=== PATIENT | female | born 1990 | race Caucasian/White ===

== ENCOUNTER 2018-12-21 05:27 | Day surgery (SDC) | payer MEDICAID ==
[2018-12-19 15:09] LABS: BASOPHILS 0.1 % (0-2); EOSINOPHILS 0.7 % (0-7); HEMATOCRIT 39.4 % (36.0-48.0); HEMOGLOBIN 13.5 g/dL (12-16); IMMATURE GRANULOCYTES 0.1 % (0-5); LYMPHOCYTES 31.3 % (15-50); MCHC 34.3 g/dL (31.0-37.0); MCV 87.6 fL (80.0-100.0); MEAN PLATELET VOLUME 9.5 fL (7.4-10.4); MONOCYTES 8.4 % (2-11); NEUTROPHILS 59.4 % (40-80); PLATELET COUNT 276 10x3/uL (130-400); WBC 8.9 10x3/uL (4.8-10.8)
[~2018-12-21] VITALS: Ht 152.4 cm; Wt 68.9 kg
[~2018-12-21 05:27] MED LIST: MECLIZINE HCL25 MG PO; MELATONIN 3 MG1 TAB PO; THEREMS-M1 TAB PO
[2018-12-21 06:25] VITALS: BP 136/80; Ht 152.4 cm; Wt 68.9 kg
[2018-12-21 06:35] LABS: HCG URINE NEGATIVE (NEGATIVE)
--- NOTE | 2018-12-21 08:55 | NUR ---
REC'D FROM RR. FAMILY AT BEDSIDE. BANDAIDS CDI TO ABDOMEN. C/O PAIN 01/28. ICE WATER BROUGHT TO PATIENT.
--- NOTE | 2018-12-21 09:15 | NUR ---
NORCO 5MG PO ADMINISTERED X1 FOR C/O PAIN.
--- NOTE | 2018-12-21 09:20 | NUR ---
WRITTEN AND VERBAL DC INST. GIVEN TO PT ALONG WITH RX. VERBALIZED UNDERSTANDING. VOIDED WITHOUT DIFFICULTY. FAMILY AT BEDSIDE.
--- NOTE | 2018-12-21 09:25 | NUR ---
TOLERATING ICE WATER. WAITING ON FL TRAY. FAMILY AT BEDSIDE.
--- NOTE | 2018-12-21 09:35 | NUR ---
LUIS MENDIOLA SERVED. FAMILY AT BEDSIDE.
--- NOTE | 2018-12-21 09:55 | NUR ---
UP TO BATHROOM. TOLERATED FL TRAY. RATES PAIN 4/10. FAMILY AT BEDSIDE.
--- NOTE | 2018-12-21 10:30 | NUR ---
DC'D HOME WITH FAMILY VIA PRIVATE VEHICLE. TAKEN TO VEHICLE VIA WC. STABLE AT TIME OF DC.
--- NOTE | 2019-01-01 13:55 | OP ---
PATIENT NAME: ROBBIN KUO MEDICAL RECORD: [id number] :89 LOCATION:D.OPS ADMISSION DATE: SURGEON: WOODY DANG MD DATE OF OPERATION: 12/21/2018 PREOPERATIVE DIAGNOSIS: Pelvic pain. POSTOPERATIVE DIAGNOSES: 1. Pelvic pain. 2. Findings consistent with endometriosis. 3. Adhesive disease from previous section. PROCEDURE: Operative laparoscopy and lysis of adhesions. SURGEON: Woody Dang MD ANESTHESIA: General endotracheal. INTRAVENOUS FLUIDS: Per anesthesia record. SPECIMENS: None. FINDINGS: 1. Uterus with a boggy texture consistent with adenomyosis. 2. Scant omental adhesions from previous section to previous Pfannenstiel. 3. Adhesions involving the lower uterine segment of cervix and bladder. 4. Normal tubes and ovaries bilaterally. PROCEDURE IN DETAIL: The patient was taken to the operating room where general anesthesia was achieved without difficulty. The patient was prepped and draped in normal sterile fashion in the dorsal lithotomy position in the [facility]. Following prep and drape, a sponge stick was placed in the vagina for uterine elevation and the patient was straight-catheterized approximately 100 cc of clear yellow urine. At this point, a 5-mm incision was made infraumbilically using the 11-blade and a 5-mm bladeless trocar was used to enter the intraperitoneal space under direct visualization of the laparoscope. The introducer was removed and intraperitoneal placement was confirmed using the laparoscope. The patient was then insufflated and opening pressure was found to be less than 8 mmHg. The patient was then insufflated. Survey of the abdomen and pelvis was performed. A second 5-mm skin incision was made in the midline, approximately 4-5 cm above the pubic symphysis. A skin incision was made and then a 5-mm bladeless trocar was then used to create a second port site under direct visualization of the laparoscope. The bipolar cautery was then used to remove several omental adhesions on the anterior abdominal wall and then attention was turned to the intrapelvic organs. No significant ovarian or tubal pathology was identified. The uterus was very soft and boggy in appearance consistent with adenomyosis. There were multiple areas of peritoneal powder-burn lesions consistent with endometriosis. Dense scarring was noted within the lower uterine segment and bladder. Following removal of the adhesions and survey of the abdomen and pelvis, the patient was desufflated. Laparoscope was removed. The trocars were removed and the skin incisions repaired with 3-0 Vicryl in an interrupted fashion. Sponge stick was removed from the vagina. The patient tolerated the procedure well, was transported to postanesthesia recovery stable without incident. OPERATIVE REPORT [id number] ROBBIN KUO TRANSINT:[id number] Voice Confirmation ID: [id number] DOCUMENT ID: [id number] WOODY DANG MD at 1355 CC: [id number] DICTATION DATE: 12/28/18 1315 SCIENCE TECHNICIAN: 12/28/18 1414 [facility] 12/21/[id number] [place] [address]
== END 2018-12-21 10:30 | disposition home or self-care (01) ==
LOC: D.OPS 05:27 → D.PAN 07:30 → D.OPS 07:30
PROVIDERS: ATTEND Obstetrics & Gynecology
DX: G89.29 Other chronic pain (principal); R10.2 Pelvic and perineal pain; N94.10 Unspecified dyspareunia; N73.6 Female pelvic peritoneal adhesions (postinfective); L40.9 Psoriasis, unspecified; F41.9 Anxiety disorder, unspecified; Z88.1 Allergy status to other antibiotic agents; Z79.899 Other long term (current) drug therapy; Z01.812 Encounter for preprocedural laboratory examination

== ENCOUNTER → 2020-11-17 08:25 | Outpatient (CLI) | payer MEDICAID ==
[2018-12-21 06:25] VITALS: BMI 29.7
[2020-11-17 09:55] LABS: BILIRUBIN NEGATIVE (NEGATIVE); KETONE NEGATIVE (NEGATIVE); NITRITE NEGATIVE (NEGATIVE); UROBILINOGEN NORMAL mg/dL (< 2)
[2020-11-17 09:56] LABS: BACTERIA FEW HPF (NONE SEEN); SQUAMOUS EPITHELIAL 0-5 HPF (0-4); WHITE CELLS - URINE 0-5 HPF (0-4)
== END | disposition home or self-care (01) ==
LOC: D.LDO 08:25
PROVIDERS: ATTEND Obstetrics & Gynecology
DX: O35.9XX0 Maternal care for (suspected) fetal abnormality and damage, unspecified, not applicable or unspecified (principal)

== ENCOUNTER 2020-12-01 16:56 | Outpatient (CLI) | payer MEDICAID ==
[2018-12-21 06:25] VITALS: BMI 29.7
[2020-12-01 17:23] LABS: BASOPHILS 0.1 % (0-2); EOSINOPHILS 0.1 % (0-7); HEMATOCRIT 38.2 % (36.0-48.0); HEMOGLOBIN 12.3 g/dL (12-16); IMMATURE GRANULOCYTES 0.2 % (0-5); LYMPHOCYTE ABS# 2.15 10x3/uL (1.18-3.74); LYMPHOCYTES 15.8 % (15-50); MCH 30.3 pg (26.0-34.0); MCHC 32.2 g/dL (31.0-37.0); MCV 94.1 fL (80.0-100.0); MEAN PLATELET VOLUME 10.5 fL (7.4-10.4); NEUTROPHIL ABS# 10.56 10x3/uL (1.56-6.13); NEUTROPHILS 77.8 % (40-80); PLATELET COUNT 257 10x3/uL (130-400); RBC 4.06 10x6/uL (4.00-5.40); RDW 14.6 % (11.5-14.5); WBC 13.6 10x3/uL (4.8-10.8)
[2020-12-01 17:37] LABS: CALC OSMOLALITY 271 mosm/kg (275-300); CALCIUM 8.6 mg/dL (8.5-10.1); CARBON DIOXIDE 24.8 mmol/L (21.0-32.0); CHLORIDE - SERUM 104 mmol/L (98-107); CREATININE - SERUM 0.7 mg/dL (0.6-1.3); GLUCOSE 91 mg/dL (74-106); POTASSIUM - SERUM 3.9 mmol/L (3.5-5.1); SODIUM 137 mmol/L (136-145); UREA NITROGEN 8 mg/dL (7-18); eGFR NON AFRICAN AMERICAN > 90 mL/min (90-120)
[2020-12-01 17:43] LABS: ALBUMIN 2.2 g/dL (3.4-5.0); ALKALINE PHOSPHATASE 97 U/L (30-120); ALT (SGPT) 21 U/L (10-68); BILIRUBIN - INDIRECT 0.17 mg/dL (0.00-1.00); BILIRUBIN - TOTAL 0.18 mg/dL (0.2-1.3); URIC ACID 5.4 mg/dL (2.6-7.2)
[2020-12-01 17:49] LABS: BILIRUBIN - DIRECT 0.01 mg/dL (0.00-0.30)
== END 2020-12-01 18:07 | disposition home or self-care (01) ==
LOC: D.LDO 16:56
PROVIDERS: ATTEND Obstetrics & Gynecology
DX: O24.419 Gestational diabetes mellitus in pregnancy, unspecified control (principal)

== ENCOUNTER 2020-12-04 12:06 | Outpatient (CLI) | payer MEDICAID ==
[2018-12-21 06:25] VITALS: BMI 29.7
[2020-12-04 13:39] LABS: BILIRUBIN NEGATIVE (NEGATIVE); KETONE NEGATIVE (NEGATIVE); NITRITE NEGATIVE (NEGATIVE); UROBILINOGEN NORMAL mg/dL (< 2)
[2020-12-04 13:40] LABS: BACTERIA FEW HPF (NONE SEEN); SQUAMOUS EPITHELIAL 0-5 HPF (0-4)
[2020-12-04] MEDS ORDERED: PRENAVITE1 TAB PO (16:47)
[2020-12-04] MEDS ORDERED: GLYBURIDE2.5 MG PO (16:47)
[2020-12-04] MEDS ORDERED: ATARAX 25 MG TA25 MG PO (16:48)
[2020-12-04] MEDS ORDERED: CYCLOBENZAPRINE10 MG PO (16:49)
[2020-12-04] MEDS ORDERED: COLACE100 MG PO (16:50)
== END 2020-12-05 09:07 | disposition home or self-care (01) ==
LOC: D.LDO 12:06 → D.LD 21:16 → D.LDO 12-05 09:07
PROVIDERS: ATTEND Obstetrics & Gynecology
DX: O24.419 Gestational diabetes mellitus in pregnancy, unspecified control (principal)

== ENCOUNTER 2020-12-09 13:35 | Outpatient (CLI) | payer MEDICAID ==
[2018-12-21 06:25] VITALS: BMI 29.7
[~2020-12-09 13:35] MED LIST changes: +ATARAX 25 MG TA25 MG PO; +COLACE100 MG PO; +CYCLOBENZAPRINE10 MG PO; +GLYBURIDE2.5 MG PO; +PRENAVITE1 TAB PO
== END 2020-12-09 13:45 | disposition home or self-care (01) ==
LOC: D.LDO 13:35
PROVIDERS: ATTEND Obstetrics & Gynecology
DX: O24.419 Gestational diabetes mellitus in pregnancy, unspecified control (principal)

== ENCOUNTER 2020-12-14 16:10 | Outpatient (CLI) | payer MEDICAID ==
[2018-12-21 06:25] VITALS: BMI 29.7
== END 2020-12-14 17:16 | disposition home or self-care (01) ==
LOC: D.LDO 16:10
PROVIDERS: ATTEND Obstetrics & Gynecology
DX: O24.419 Gestational diabetes mellitus in pregnancy, unspecified control (principal); O16.9 Unspecified maternal hypertension, unspecified trimester

== ENCOUNTER 2020-12-17 14:00 | Outpatient (CLI) | payer MEDICAID ==
[2018-12-21 06:25] VITALS: BMI 29.7
== END 2020-12-17 16:00 | disposition home or self-care (01) ==
LOC: D.LDO 14:00
PROVIDERS: ATTEND Obstetrics & Gynecology
DX: O24.419 Gestational diabetes mellitus in pregnancy, unspecified control (principal)

== ENCOUNTER → 2020-12-22 14:39 | Outpatient (CLI) | payer MEDICAID ==
[2018-12-21 06:25] VITALS: BMI 29.7
== END | disposition home or self-care (01) ==
LOC: D.LDO 14:39
PROVIDERS: ATTEND Obstetrics & Gynecology
DX: O24.419 Gestational diabetes mellitus in pregnancy, unspecified control (principal)

== ENCOUNTER 2020-12-25 10:36 | Outpatient (CLI) | payer MEDICAID ==
[2018-12-21 06:25] VITALS: BMI 29.7
[2020-12-25 11:40] LABS: BASOPHILS 0.1 % (0-2); EOSINOPHILS 0.1 % (0-7); HEMATOCRIT 39.3 % (36.0-48.0); HEMOGLOBIN 12.9 g/dL (12-16); IMMATURE GRANULOCYTES 0.4 % (0-5); LYMPHOCYTE ABS# 1.95 10x3/uL (1.18-3.74); LYMPHOCYTES 17.3 % (15-50); MCH 30.1 pg (26.0-34.0); MCHC 32.8 g/dL (31.0-37.0); MCV 91.8 fL (80.0-100.0); MEAN PLATELET VOLUME 10.9 fL (7.4-10.4); MONOCYTES 6.3 % (2-11); NEUTROPHIL ABS# 8.52 10x3/uL (1.56-6.13); NEUTROPHILS 75.8 % (40-80); PLATELET COUNT 228 10x3/uL (130-400); RBC 4.28 10x6/uL (4.00-5.40); RDW 14.4 % (11.5-14.5); WBC 11.3 10x3/uL (4.8-10.8)
[2020-12-25 11:49] LABS: CALC OSMOLALITY 274 mosm/kg (275-300); CALCIUM 9.5 mg/dL (8.5-10.1); CARBON DIOXIDE 21.9 mmol/L (21.0-32.0); CHLORIDE - SERUM 107 mmol/L (98-107); CREATININE - SERUM 0.8 mg/dL (0.6-1.3); POTASSIUM - SERUM 4.2 mmol/L (3.5-5.1); SODIUM 139 mmol/L (136-145); UREA NITROGEN 11 mg/dL (7-18); eGFR NON AFRICAN AMERICAN 89 mL/min (90-120)
[2020-12-25 11:53] LABS: GLUCOSE 67 mg/dL (74-106)
[2020-12-25 11:55] LABS: ALKALINE PHOSPHATASE 124 U/L (30-120); ALT (SGPT) 18 U/L (10-68); BILIRUBIN - DIRECT 0.03 mg/dL (0.00-0.30); BILIRUBIN - INDIRECT 0.09 mg/dL (0.00-1.00); BILIRUBIN - TOTAL 0.12 mg/dL (0.2-1.3); PROTEIN - SERUM 5.6 g/dL (6.4-8.2); URIC ACID 7.3 mg/dL (2.6-7.2)
[2020-12-25 11:57] LABS: CREATININE - URINE 36.8 mg/dL (30-125); PRO/CRE RATIO URINE 1.9 mg/g; PROTEIN - URINE 70.2 mg/dL (0.0-11.9)
== END 2020-12-26 19:51 | disposition home or self-care (01) ==
LOC: D.LDO 10:36 → D.LD 22:04 → D.LDO 12-26 19:51
PROVIDERS: ATTEND Student in an Organized Health Care Education/Training Program
DX: O24.419 Gestational diabetes mellitus in pregnancy, unspecified control (principal); O10.919 Unspecified pre-existing hypertension complicating pregnancy, unspecified trimester

== ENCOUNTER 2020-12-28 08:45 | Inpatient (IN) | payer MEDICAID ==
[2020-12-28] VITALS (9 sets, daily range): BP systolic 118–143; BP diastolic 68–86; Ht 152.4 cm; Wt 86.4 kg
[~2020-12-28] VITALS: Ht 152.4 cm; Wt 86.4 kg
--- NOTE | ~2020-12-28 | OP ---
PATIENT NAME: ROBBIN KUO MEDICAL RECORD: [id number] :89 LOCATION:[facility].1274 ADMISSION DATE:12/28/20 SURGEON: DANETTE LECHUGA DO DATE OF OPERATION: 12/28/2020 PREOPERATIVE DIAGNOSES: 34-weeks, prior in labor, painful contractions, GDMA2, preeclampsia, suspected abruption. POSTOPERATIVE DIAGNOSIS: 34-weeks, prior in labor, painful contractions, GDMA2, preeclampsia, suspected abruption. PRIMARY SURGEON: Danette Lechuga DO ANESTHESIA: Spinal. PROCEDURE: Repeat low transverse via Pfannenstiel incision. FINDINGS: Enlarged fibroid uterus, large clot, and placenta. Grossly normal bilateral tubes and ovaries. Light meconium-stained amniotic fluid. A female born at 1532, Weight 2085 grams, vertex position, loose nuchal cord times 1, Apgars 8 and 8. Interceed placed over the hysterotomy. SPECIMEN: Placenta, cord pH, and cord blood. EBL: 900 cc. IV FLUIDS: Per anesthesia. URINE OUTPUT: 100 cc clear yellow urine. INFECTION PROPHYLAXIS: 900 mg clindamycin. COMPLICATIONS: None. The patient was having painful regular contractions as well as vaginal bleeding and increasing abdominal pain. Due to this combination of symptoms also a history of prior delivery at 36 weeks, suspected abruption. Risks of repeat were reviewed including bleeding, pain, infection, damage to surrounding structures, and risks of abruption were reviewed. The patient agreed to repeat . The patient taken to OR, spinal anesthesia administered and found to be adequate. She was prepped and draped in normal sterile fashion in dorsal supine position with leftward tilt. A Pfannenstiel incision was made on the skin with a scalpel and carried down to the underlying layer of fascia with the Bovie. The fascia was incised in the midline and the incision extended laterally with Jackson scissors. The inferior edge of the fascia was grasped with Barry clamps and the rectus muscle dissected off sharply. Superior edge of the fascial incision grasped with Barry clamps and rectus muscle dissected off sharply. Rectus in the midline. Peritoneum identified and noted to be free of adherent bowel or bladder and entered bluntly. Peritoneum stretched with gentle traction. A bladder blade placed. Bladder flap created using Metzenbaum scissors and DeBakeys. Bladder brought down and bladder blade replaced. Transverse incision was then made on the uterus with scalpel. Incision extended with upward and downward gentle traction. Infant's head brought to the OPERATIVE REPORT [id number] SHIELA,NOVEMBER M incision. Fundal pressure applied to deliver . Nuchal cord noted, reduced easily. Rest of body and shoulders delivered without issue. Infant's mouth and nose were suctioned. Cord was milked times 3, clamped and cut and handed to awaiting pediatric nurse with cry noted. Cord segment taken for cord pH. Cord avulsed in trying to remove the placenta and then the rest of the placenta manually removed. Large blood clot noted. Uterus exteriorized noted to be enlarged with fibroids. A dry laparotomy sponge was used to assure complete removal of placental membranes from within the uterus. A 0 Vicryl used to close the hysterotomy in a running locked fashion with good hemostasis. Lateral edge with some bleeding reinforced with 0 Monocryl and some bleeding noted on the left lateral edge closed with [id number] and compression placed and then posterior cul-de-sac irrigated and suctioned to remove blood clots and fluid. Hysterotomy reexamined. Uterus was firm. Hemostasis was adequate. Uterus replaced into abdominal cavity. Gutters cleaned with moist laparotomy sponge to ensure complete removal of blood clots and fluid. Interceed placed on hysterotomy. Muscles loosely closed with 2-0 Monocryl. Fascia closed in a running fashion with 0 Vicryl, subcutaneous layer irrigated and all bleeding vessels cauterized. Subcutaneous layer closed with plain gut. Skin closed in a subcuticular fashion with 3-0 Monocryl and Dermabond dressing applied. Findus found to be firm below the umbilicus. The patient tolerated the procedure well and was taken to recovery room in stable condition. TRANSINT:[id number] Voice Confirmation ID: [id number] DOCUMENT ID: [id number] DANETTE LECHUGA DO CC: [id number] DICTATION DATE: 12/28/201720 BIOMASS FACILITATOR: 12/29/20 0202 ADM IN [facility] [address] [id number]
[2020-12-28 11:33] LABS: BILIRUBIN NEGATIVE (NEGATIVE); KETONE NEGATIVE (NEGATIVE); NITRITE NEGATIVE (NEGATIVE); UROBILINOGEN NORMAL mg/dL (< 2)
[2020-12-28 11:34] LABS: WHITE CELLS - URINE 0-5 HPF (0-4)
[2020-12-28 11:35] LABS: BACTERIA FEW HPF (NONE SEEN)
[2020-12-28 14:55] LABS: HEMATOCRIT 38.9 % (36.0-48.0); HEMOGLOBIN 12.9 g/dL (12-16); MCH 30.4 pg (26.0-34.0); MCHC 33.2 g/dL (31.0-37.0); MCV 91.7 fL (80.0-100.0); MEAN PLATELET VOLUME 11.3 fL (7.4-10.4); RBC 4.24 10x6/uL (4.00-5.40); RDW 14.5 % (11.5-14.5); WBC 14.6 10x3/uL (4.8-10.8)
[2020-12-28 15:26] LABS: CALC OSMOLALITY 276 mosm/kg (275-300); CALCIUM 8.3 mg/dL (8.5-10.1); CARBON DIOXIDE 20.1 mmol/L (21.0-32.0); CHLORIDE - SERUM 108 mmol/L (98-107); CREATININE - SERUM 0.9 mg/dL (0.6-1.3); POTASSIUM - SERUM 4.8 mmol/L (3.5-5.1); SODIUM 140 mmol/L (136-145); UREA NITROGEN 13 mg/dL (7-18); eGFR NON AFRICAN AMERICAN 77 mL/min (90-120)
[2020-12-28 15:32] LABS: ALBUMIN 1.9 g/dL (3.4-5.0); ALKALINE PHOSPHATASE 130 U/L (30-120); ALT (SGPT) 18 U/L (10-68); BILIRUBIN - TOTAL 0.13 mg/dL (0.2-1.3); GLUCOSE 57 mg/dL (74-106)
--- NOTE | 2020-12-28 16:24 | NUR ---
BABY 1532 PLACENTA 1533
--- NOTE | 2020-12-28 17:10 | NUR ---
PT RECEIVED VIA BED FROM RECOVERY NURSE CLINT RN. PT AAOx3, RATES PAIN 2-3/10. VSS. IV INFUSING PITOCIN ORDERED AT 125ML/H TO LEFT AC PIV. LOW TRANSVERSE ABD INCISION IS C/D WITH OCCLUSIVE DRESSING OVER SITE. FF, ML, U/2. SMALL RUBRA LOCHIA, NO CLOTS EXPELLED WITH MASSAGE. PERIPADS CHANGED. COSTELLO CATH DRAINING CLEAR YELLOW URINE TO BEDSIDE DRAINAGE. 100ML EMPTIED FROM UROMETER. SCD'S ON LE BILAT AND ON PUMP. ICE PACK PLACED TO ABD INCISION. PT DENIES NAUSEA. ICE CHIPS GIVEN WELL WATER. PT INSTRUCTED IF ICE CHIPS TOLERATED MAY ADVANCE TO SMALL SIPS OF WATER. EMESIS BAG GIVEN AND PT INSTRUCTED TO REPORT NAUSEA. INCENTIVE SPIROMETER TEACHING DONE, PT DOES SO WITH GOOD EFFORT x 3, GOOD COUGH. ABD BRACED WITH SURGICAL PILLOW FOR COUGH. PT DENIES NEEDS AT THIS TIME. SRUx2, CL IN REACH. WILL NOTIFY SIG OTHER PT IS SETTLED IN ROOM.
--- NOTE | 2020-12-28 17:40 | NUR ---
PT C/O WORSENING INCISIONAL PAIN RATED 4/10, REQUESTING PAIN MED. DR ROSAS PHONED FOR POST-OP ORDERS. ORDERS RECEIVED, PT ADMIN SCHEDULED TORADOL AND PRN DILAUDID IVP, SEE EMAR FOR DOC. FF, ML, U/2. SMALL RUBRA LOCHIA, NO CLOTS. PT DENIES NAUSEA OR FURTHER NEEDS. SRUx2, CL IN REACH.
--- NOTE | 2020-12-28 17:55 | NUR ---
PT PLACED ON 2L OXYGEN VIA NC FOR OXYGEN SATURATION DECREASING DURING SLEEP FOLLOWING DILAUDID ADMIN. PT INSTRUCTED ON PURPOSE, UNDERSTANDING VERBALIZED. SRUX2, CL IN REACH.
--- NOTE | 2020-12-28 19:07 | NUR ---
RCVD PT FROM AM SHIFT. PT SUPINE IN BED WITH HOB 30 DEGREES. O2 AT 2L IN PLACE VIA NC. PT RATES PAIN 3/10 AND TOLERABLE AT THIS TIME. SHIFT ASSESSMENT COMPLETED. SEE FLOWSHEET. HR-RRR, PPP, LUNGS CTAB, BS X4. FF U/1. SMALL LOCHIA RUBRA NOTED TO PERIPAD, NO CLOTS. LARGE ABD DRESSING IN PLACE @ INCISION AND IS C/D/I. SCD'S IN PLACE AND PUMP ON. PIV TO LAC INFUSING NS WITH 20 U PITOCIN @ 125ML/HR. SL TO RIGHT HAND. NO ERYTHEMA OR EDEMA NOTED TO EITHER SITE. PT DENIES FURTHER NEEDS. WILL CONTINUE TO MONITOR.
--- NOTE | 2020-12-28 20:30 | NUR ---
ALARIS PUMP BEEPING OCCLUDED. IV SITE ASSESSED. IV INFUSION CHANGED TO RIGHT HAND. PIV TO LAC SL AT THIS TIME.
--- NOTE | 2020-12-28 21:02 | NUR ---
LABETALOL 100 MG X1 TAB, GAS-X X1 TAB AND DILAUDID 2MG/ML GIVEN AT THIS TIME. SEE EMAR FOR ADMINISTRATION. PT DENIES FURTHER NEEDS AT THIS TIME. WILL CONTINUE TO MONITOR.
--- NOTE | 2020-12-28 23:02 | NUR ---
CURRENT PITOCIN INFUSE COMPLETED. OLD BAG DOWN, NEW BAG UP TO PRESENT TUBING AND SET TO INFUSE AT 125ML/HR VIA ALARIS PUMP. TORADOL GIVEN PER ORDERS. SEE EMAR FOR ADMINISTRATION. PT RATES PAIN 2/10 CURRENTLY AND TOLERABLE. PT TRANSFERRED TO ROOM 1274 FOR CONTINUED PP CARE.
[2020-12-29] VITALS (23 sets, daily range): BP systolic 103–157; BP diastolic 57–94
--- NOTE | 2020-12-29 01:15 | NUR ---
ROUNDS MADE. PT SITTING UP IN BED, AAOX3. RATES PAIN 2/10 AND TOLERABLE AT THIS TIME. BREAST PUMP PROVIDED PER REQUEST AND EDUCATION/INSTRUCTIONS PROVIDED ON USE. PT DENIES FURTHER NEEDS.
--- NOTE | 2020-12-29 02:00 | NUR ---
FUNDUS REMAINS FIRM, U/1. NO CLOTS EXPRESSED WITH MASSAGE. UNDERPADS CHANGED AT THIS TIME. PT DENIES FURTHER NEEDS. WILL CONTINUE TO MONITOR.
--- NOTE | 2020-12-29 02:34 | NUR ---
ROUNDS MADE. PT SITTING UP IN BED, AAOX3. REPORTS PAIN 7/10 AT THIS TIME. DILAUDED 2MG/ML GIVEN PER ORDERS. SEE EMAR. VS ASSESSED. BP ELEVATED AT 152/96. WILL RECHECK IN 30 MINS POST PAIN MEDICATION ADMINISTRATION.
--- NOTE | 2020-12-29 03:41 | NUR ---
RN TO BEDSIDE. BP CUFF ADJUSTED. ICE WATER PROVIDED PER REQUEST. NO FURTHER NEEDS VOICED.
--- NOTE | 2020-12-29 04:00 | NUR ---
REPORT OF PT BP RESULTS CALLED TO DR ROSAS. NEW ORDERS RCVD FOR CBC, CMP, URIC ACID AND P/C RATIO WELL TO INCREASE LABETALOL DOSE TO 200 MG Q8H.
--- NOTE | 2020-12-29 04:05 | NUR ---
ATTEMPTED TO CALL LAB X2 TO INFORM THEM OF STAT LABS. NO ANSWER. HOUSE SUP PHONES, ADVISED TO CONTINUE TO TRY TO CALL LAB.
--- NOTE | 2020-12-29 04:32 | NUR ---
URINE COLLECTED FOR P/C RATIO. LABETALOL 200MG X1 TAB GIVEN PER ORDERS. SEE EMAR FOR ADMINISTRATION. ICE WATER PROVIDED PER REQUEST. NO FURTHER NEEDS VOICED.
--- NOTE | 2020-12-29 05:45 | NUR ---
TORADOL GIVEN PER ORDERS. SEE EMAR FOR ADMINISTRATION. PT DENIES FURTHER NEEDS AT THIS TIME.
--- NOTE | 2020-12-29 05:58 | NUR ---
LAB TO ROOM TO DRAW 0400 STAT LABS AT THIS TIME.
[2020-12-29 06:16] LABS: BASOPHILS 0.1 % (0-2); EOSINOPHILS 0.3 % (0-7); HEMATOCRIT 36.5 % (36.0-48.0); IMMATURE GRANULOCYTES 0.4 % (0-5); LYMPHOCYTE ABS# 2.18 10x3/uL (1.18-3.74); LYMPHOCYTES 14.4 % (15-50); MCH 30.5 pg (26.0-34.0); MCHC 32.9 g/dL (31.0-37.0); MCV 92.6 fL (80.0-100.0); MEAN PLATELET VOLUME 11.3 fL (7.4-10.4); MONOCYTES 5.6 % (2-11); NEUTROPHIL ABS# 11.95 10x3/uL (1.56-6.13); NEUTROPHILS 79.2 % (40-80); PLATELET COUNT 166 10x3/uL (130-400); RBC 3.94 10x6/uL (4.00-5.40); RDW 14.8 % (11.5-14.5); WBC 15.1 10x3/uL (4.8-10.8)
[2020-12-29 06:21] LABS: CALCIUM 7.7 mg/dL (8.5-10.1); CARBON DIOXIDE 20.4 mmol/L (21.0-32.0); POTASSIUM - SERUM 4.4 mmol/L (3.5-5.1)
[2020-12-29 06:22] LABS: CREATININE - URINE 115.5 mg/dL (30-125); PRO/CRE RATIO URINE 1.3 mg/g; PROTEIN - URINE 147.1 mg/dL (0.0-11.9)
[2020-12-29 06:27] LABS: ALBUMIN 1.6 g/dL (3.4-5.0); BILIRUBIN - TOTAL 0.19 mg/dL (0.2-1.3); PROTEIN - SERUM 4.9 g/dL (6.4-8.2); URIC ACID 7.5 mg/dL (2.6-7.2)
--- NOTE | 2020-12-29 06:32 | NUR ---
REPORT OF LAB RESULTS CALLED TO DR ROSAS. NEW ORDERS RCVD TO GET MAG READY AND SHE WILL BE IN ROUTE TO UNIT TO DISCUSS POC WITH PT.
--- NOTE | 2020-12-29 07:20 | NUR ---
PT LYING IN SEMI-BARROSO'S POSITION. WAKES UPON ENTERING ROOM. VS NOTED. PT DENIES H/A, VIS PROBLEMS, EPIG OR RUQ PAIN. HRRR WITHOUT AUDIBLE MURMUR. BBS CLEAR. BS X 4. PT STATES PASSING GAS. ABDOMEN SOFT/NON-DISTENDED. FUNDUS FIRM AT U/1. RUBRA LOCHIA SMALL AMT. PERICARE DONE. PERIPADS CHANGED. ABDOMINAL DRESSING DRY WITHOUT DRAINAGE NOTED. FRESH ICE PACK TO INCISION. COSTELLO TO GRAVITY DRAINING CONCENTRATED YELLOW URINE. NEG HOMANS' SIGN. PPP. 1+/1+ PITTING EDEMA NOTED TO ANKLES. PT PERSONAL SOCKS REMOVED DUE TO EDEMA. LARGER, STRETCHY HOSPITAL SOCKS PLACED ON PT FEET PER PT REQUEST. PIV TO RIGHT WRIST AND SL TO LEFT AC. SITES CLEAR. PITOCIN 20 UNITS IN NS INFUSING TO RIGHT WRIST AT 125 ML/HR. PT INSTRUCTED ON MAGNESIUM SULFATE, INCLUDING PURPOSE AND SIDE EFFECTS PT MAY EXPERIENCE. PT VERBALIZES UNDERSTANDING AND STATES DR ROSAS DISCUSSED ALL WITH PT AND SO. PT IN AGREEMENT WITH POC. PT C/O INCISIONAL PAIN OF "4" ON 0-10 PAIN SCALE. REQUESTS PAIN MED. SR UP X 2. CALL LIGHT IN REACH. EKG AND PULSE OX MONITORS ON AT THIS TIME.
--- NOTE | 2020-12-29 07:22 | NUR ---
PIV FLUID CHANGED TO 1/2 NS AND INFUSING AT 50 ML/HR. MAGNESIUM SULFATE 6 GRAM LOADING DOSE STARTED IVPB VIA ALARIS PUMP. PT INSTRUCTED ON MEDS. VERBALIZES UNDERSTANDING.
--- NOTE | 2020-12-29 07:39 | NUR ---
DILAUDID 2 MG GIVEN SIVP OVER 2 MINUTES FOR PT C/O INCISIONAL PAIN OF "4" ON 0-10 PAIN SCALE. PT ALSO GIVEN ORDERED MYLICON. PT INSTRUCTED ON MEDS. VERBALIZES UNDERSTANDING. PT PROVIDED WITH FRESH ICE WATER. STAT LOCK FOR COSTELLO ALSO CHANGED PER PT REQUEST FOR COMFORT.
--- NOTE | 2020-12-29 08:15 | NUR ---
PT DROWSY FROM DILAUDID. PULSE OX 92%. O2 ON PER N/C AT 2 LITERS. PT INSTRUCTED ON PURPOSE. VERBALIZES UNDERSTANDING.
--- NOTE | 2020-12-29 09:20 | NUR ---
PT SITTING UP IN BED. MORE AWAKE. REQUESTS AND RECEIVES ICE WATER AND POPSICLE. DENIES C/O.
--- NOTE | 2020-12-29 10:02 | NUR ---
PT SITTING UP IN BED. PUMPING BREASTS. QUESTIONS ANSWERED. PT REASSURED.
--- NOTE | 2020-12-29 10:05 | NUR ---
O2 PER N/C OFF-O2 SAT 96% WITHOUT O2.
[2020-12-29 11:38] LABS: HEMATOCRIT 36.6 % (36.0-48.0); HEMOGLOBIN 12.1 g/dL (12-16); MCH 30.6 pg (26.0-34.0); MCHC 33.1 g/dL (31.0-37.0); MCV 92.7 fL (80.0-100.0); MEAN PLATELET VOLUME 10.9 fL (7.4-10.4); RBC 3.95 10x6/uL (4.00-5.40); RDW 14.6 % (11.5-14.5); WBC 13.1 10x3/uL (4.8-10.8)
--- NOTE | 2020-12-29 11:39 | NUR ---
DR ROSAS NOTIFIED OF PT BLOOD PRESSURES AND LABS DRAWN. PARAMETERS RECEIVED ON HOLDING LABETALOL.
--- NOTE | 2020-12-29 11:44 | NUR ---
TORADOL 30 MG GIVEN SIVP OVER 2 MINUTES FOR PT C/O INCISIONAL PAIN OF "5" ON 0-10 PAIN SCALE. PT INSTRUCTED ON MED. VERBALIZES UNDERSTANDING.
--- NOTE | 2020-12-29 13:28 | NUR ---
DR ROSAS NOTIFIED OF LAST BP AND PT DESIRE TO VISIT WITH INFANT. STATES PT MAY GET UP IN WHEELCHAIR TO GO TO [facility] TO VISIT.
--- NOTE | 2020-12-29 13:42 | NUR ---
PT C/O INCISIONAL PAIN OF "5" ON 0-10 PAIN SCALE. DILAUDID 2 MG GIVEN SIVP OVER 2 MINUTES. PT INSTRUCTED ON MED. VERBALIZES UNDERSTANDING.
--- NOTE | 2020-12-29 14:20 | NUR ---
PT SITTING UP IN BED. ASSISTED WITH BREAST PUMP FOR PT TO PUMP BREASTS AT THIS TIME. VSS. PT DENIES C/O.
--- NOTE | 2020-12-29 15:30 | NUR ---
PT SITTING UP IN BED. VSS. PT REQUESTS AND RECEIVES MORE ICE WATER.
--- NOTE | 2020-12-29 16:30 | NUR ---
VSS. PT DENIES C/O. I/O COMPLETED THIS HOUR AND DOCUMENTED. CLEAR LIQUID DIET SERVED.
--- NOTE | 2020-12-29 17:10 | NUR ---
DR ROSAS TO ROOM. PT SITTING UP ON SIDE OF BED ABOUT TO GO SEE . DR ROSAS VISITS WITH PT AND SO. NO NEW ORDERS. STATES PT MAY GO TO [facility] VIA WHEELCHAIR TO VISIT .
--- NOTE | 2020-12-29 17:13 | NUR ---
PT NOTIFIED THAT VISIT TO NURSERY ON HOLD DUE TO EMERGENCY. PT STATES OK WITH WAITING. PT AMBULATES TO COUCH. STATES "I WILL PUMP WHILE I WAIT".
--- NOTE | 2020-12-29 18:14 | NUR ---
PT SITTING UP ON COUCH. PUMPING BREASTS AT THIS TIME. VS NOTED. PT DENIES H/A, VIS PROBLEMS, EPIG OR RUQ PAIN. PT STATES C/O INCISIONAL PAIN, BUT DECLINES PAIN MED AT THIS TIME. STATES "I WANT TO WAIT UNTIL AFTER I GO TO THE NURSERY".
--- NOTE | 2020-12-29 18:20 | NUR ---
DR ROSAS ON UNIT. NOTIFIED OF TORADOL ORDER X 4 DOSES ONLY. ORDER RECEIVED THAT PT MAY HAVE 2 MORE DOSES.
--- NOTE | 2020-12-29 19:07 | NUR ---
pt c/o incisional pain. toradol 30 mg given sivp over 2 minutes.
--- NOTE | 2020-12-29 19:35 | NUR ---
PT TAKEN TO NURSERY TO SEE BY WHEELCHAIR.
--- NOTE | 2020-12-29 21:00 | NUR ---
PT WHEELED BACK TO ROOM BY WHEELCHAIR. PT REQUESTS PAIN MEDICATION.
--- NOTE | 2020-12-29 21:00 | NUR ---
PT SITTING UP IN BED, A,A,OX4. VSS. SEE FULL ASSESSMENT PER FLOWSHEET. FF,U2, MIDLINE, SMALL AMOUNT RUBRA LOCHIA NOTED ON PERIPAD. PERIPAD CHANGED. SCD/S ON. PITTING EDEMA +1 NOTED ON LOWER EXTREMITIES BILATERALLY. PIV IN RIGHT WRIST INFUSING NS AND MAG PER EMAR. PIV C/D/I. PIV IN LEFT FOREARM SALINE LOCKED. C/D/I. FOAM BANDAGE NOTED ON LOWER TRANSVERSE ABDOMINAL INCISION. C/D/I. COSTELLO EMPTIED 350 MLS YELLOW URINE. PT DENIES NEEDS AT THIS TIME.
--- NOTE | 2020-12-29 21:17 | NUR ---
PAIN MEDICATION AND GASX ADMINSITERED PER EMAR. ICE WATER PROVIDED. PT DENIES OTHER NEEDS AT THIS TIME.
[2020-12-29 23:35] LABS: HEMATOCRIT 36.4 % (36.0-48.0); HEMOGLOBIN 12.1 g/dL (12-16); MCH 30.5 pg (26.0-34.0); MCHC 33.2 g/dL (31.0-37.0); MCV 91.7 fL (80.0-100.0); MEAN PLATELET VOLUME 10.2 fL (7.4-10.4); RBC 3.97 10x6/uL (4.00-5.40); RDW 14.8 % (11.5-14.5); WBC 12.4 10x3/uL (4.8-10.8)
--- NOTE | 2020-12-29 23:42 | NUR ---
TYLENOL ADMINSITERED PER EMAR. MAG CHECKS DONE. PT USES INCENTIVE SPIROMETER WITH GOOD EFFORT. PT DENIES NEEDS AT THIS TIME.
--- NOTE | 2020-12-29 23:43 | NUR ---
MAG LEVEL 6.2 REPORTED FROM IGNACIA IN LAB.
[2020-12-30] VITALS (9 sets, daily range): BP systolic 99–141; BP diastolic 58–82
--- NOTE | 2020-12-30 00:30 | NUR ---
MAG CHECKS DONE. PT C/O IRRITATION AT CATHETER SITE. PERICARE DONE, PERIPADS CHANGED, COSTELLO CATHETER TUBING ADJUSTED. PT DENIES OTHER NEEDS AT THIS TIME.
--- NOTE | 2020-12-30 01:00 | NUR ---
TORADOL ADMINISTERED PER EMAR. PT DENIES NEEDS AT THIS TIME.
--- NOTE | 2020-12-30 01:43 | NUR ---
DILAUDID 2 MG ADMINISTERED PER EMAR. PT DENIES OTHER NEEDS AT THIS TIME.
--- NOTE | 2020-12-30 03:07 | NUR ---
NEW BAG 1/2 NS HUNG AND NEW BAG MAG HUNG. SEE EMAR.
--- NOTE | 2020-12-30 04:30 | NUR ---
COSTELLO BAG EMPTIED. 900 MLS YELLOW URINE. ICE WATER PROVIDED. PT DENIES OTHER NEEDS AT THIS TIME.
--- NOTE | 2020-12-30 07:31 | NUR ---
PT LYING IN SEMI-BARROSO'S POSITION. AWAKE. AAO X 3. VSS. HRRR WITHOUT AUDIBLE MURMUR. BBS CLEAR. BS X 4. ABDOMEN SOFT/NON-DISTENDED. FUNDUS FIRM AT U/1. RUBRA LOCHIA SCANT AMT. NO CLOTS NOTED. ABDOMINAL DRESSING DRY WITHOUT DRAINAGE NOTED. COSTELLO TO GRAVITY DRAINING CLEAR, YELLOW URINE. DTR'S 2+/2+; NO CLONUS. 2+/2+ PITTING EDEMA NOTED TO ANKLES. GENERALIZED EDEMA NOTED. PIV OF 1/2 NS INFUSING AT 50 ML/HR. MAGNESIUM SULFATE INFUSING AT 50 ML/HR. SITE CLEAR TO RIGHT HAND. SL TO LEFT AC CLEAR. SCDS ON BLE. PUMP ON. PT C/O INCISIONAL AND GAS PAIN OF "6" ON 0-10 PAIN SCALE. DECLINES IV PAIN MED AT THIS TIME. SR UP X 2. CALL LIGHT IN REACH.
[2020-12-30 08:14] LABS: RAPID PLASMA REAGIN Non Reactive (Non Reactive)
--- NOTE | 2020-12-30 08:21 | NUR ---
DR ROSAS CALLS. ORDERS RECEIVED.
--- NOTE | 2020-12-30 08:45 | NUR ---
PIV CONVERTED TO SALINE LOCK. COSTELLO DC'D WITH 175 ML CLEAR, YELLOW URINE NOTED IN BAG. PERIPAD CHANGED WITH SCANT RUBRA LOCHIA NOTED. PT INSTRUCTED TO NOTIFY NURSE OF NEED TO VOID. VERBALIZES UNDERSTANDING.
--- NOTE | 2020-12-30 10:19 | NUR ---
PERCOCET 10/325 GIVEN PO ORDERED FOR PT C/O INCISIONAL PAIN OF "7" ON 0-10 PAIN SCALE. PT OOB AND AMB TO BR TO SHOWER. BED LINENS CHANGED.
--- NOTE | 2020-12-30 10:25 | NUR ---
PT VOIDS 400 ML OF BLOOD-TINGED URINE. PT IN SHOWER AT THIS TIME. THIS NURSE ASSISTS PT WITH SHOWER.
--- NOTE | 2020-12-30 10:58 | NUR ---
PT FINISHED WITH SHOWER. PT ASSISTED WITH GOWN/PAD/PANTIES. PT AMB BACK TO BED. ABDOMINAL DRESSING REMOVED. INCISION WITHOUT REDNESS, SWELLING OR DRAINAGE NOTED. PERIPAD TO INCISION. PT INSTRUCTED ON INCISION CARE AND KEEPING AREA DRY. VERBALIZES UNDERSTANDING. FRESH ICE WATER PROVIDED TO PT.
--- NOTE | 2020-12-30 13:43 | NUR ---
PT C/O INCISIONAL PAIN OF "7" ON 0-10 PAIN SCALE. MOTRIN 600 MG GIVEN PO ORDERED. PT UP TO BR AT THIS TIME.
--- NOTE | 2020-12-30 13:58 | NUR ---
SL TO LEFT AC DC'D WITH CATHELON INTACT. PRESSURE BANDAGE TO SITE.
--- NOTE | 2020-12-30 13:58 | NUR ---
PT VOIDS 500 ML OF BLOOD-TINGED URINE. PERICARE DONE. PERIPAD CHANGED WITH SCANT RUBRA LOCHIA NOTED. PT AMB TO COUCH TO SIT AT THIS TIME.
--- NOTE | 2020-12-30 15:00 | NUR ---
PT SITTING UP IN BED. PUMPING BREASTMILK AT THIS TIME. DENIES NEEDS OR C/O.
--- NOTE | 2020-12-30 16:44 | NUR ---
PT SITTING UP IN BED. CONSUMING DINNER. ORDERED MEDS GIVEN PO. PT INSTRUCTED ON MEDS. VERBALIZES UNDERSTANDING.
--- NOTE | 2020-12-30 18:15 | NUR ---
PT CONTINUES IN NURSERY BONDING WITH INFANT. DR ROSAS VISITS WITH PT.
--- NOTE | 2020-12-30 19:30 | NUR ---
PT SITTING UP IN BED, AA,OX4. PAIN MEDICATION ADMINISTERED PER EMAR. PT STATES "PAIN IS 8/10 AT INCISION SITE AND SHE WAITED TOO LONG TO REQUEST PAIN MEDDICINE". FF,MIDLINE. U2. NO RUBRA LOCHIA NOTED ON PERIPAD. INCISION SITE CLEAN AND SLIGHTLY MOIST. PERIPAD PLACED AT CREASE IN ABDOMEN, PT INSTRUCTED TO KEEP CLEAN AND DRY. PT REPORTS SHE VOIDED 800 MLS URINE. PIV SALINE LOCKED IN RT WRIST. ICE WATER PROVIDED. PT DENIES OTHER NEEDS AT THIS TIME. VSS. SEE FULL ASSESSMENT PER FLOWSHEET. PT DENIES OTHER NEEDS AT THIS TIME.
--- NOTE | 2020-12-30 21:32 | NUR ---
TYLENOL,COLACE,MILK MAGNESIA AND GASX ADMINISTERED. ICE WATER PROVIDED. PT DENIES NEEDS AT THIS TIME.
--- NOTE | 2020-12-30 22:15 | NUR ---
LETI NOTIFIED OF PT REQUEST TO DISCHARGE SO SHE CAN GO TO [facility] WITH BEING TRANSFERRED. MD RECOMMENDS PT STAY OVERNIGHT BEFORE BEING DICHARGED. EDUCATION DONE ON TAKING PAIN MEDICATION, BEING ABLE TO GET UP AND WALK ON OWN AND KEEPING PAIN CONTROLLED. PT VERBALIZES UNDERSTANDING.
--- NOTE | 2020-12-31 00:16 | NUR ---
PAIN MEDICATION ADMINISTERED PER EMAR. PT UP TO NURSERY TO SEE .
--- NOTE | 2020-12-31 00:50 | NUR ---
LABETOLOL ADMINSITERED PER EMAR. PT BACK TO ROOM FROM NURSERY. SCDS ON. PT ASSISTED TO ELEVATE FEET. PT C/O SWELLING IN FEET. ICE WATER AND CRANBERRY JUICE PROVIDED.
--- NOTE | 2020-12-31 03:00 | NUR ---
MOTRIN AND AMBIEN ADMINISTERED PER EMAR. PT AGITATED AND ANXIOUS, STATES "SHE KEEPS FEELING LIKE SHE IS FALLING AND HER MUSCLES JERK HER AWAKE." PT ENCOURAGED TO REST. LIGHTS DIMMED. ICE WATER AND TWO PILLOWS PROVIDED PER PT REQUEST.
[2020-12-31 03:13] VITALS: BP 140/72
--- NOTE | 2020-12-31 05:56 | NUR ---
PT RESTING WITH EYES CLOSED, BREATHING NONLABORED.
--- NOTE | 2020-12-31 07:48 | NUR ---
THIS RN TO ROOM FOR SHIFT ASSESSMENT. PT IN BED, SUPINE WITH LEFT TILT, RESTING WITH EYES CLOSED, RESP EVEN AND UNLABORED. PT LEFT UNDISTURBED FOR REST. SRUx2, CL IN REACH. WILL RETURN FOR SHIFT ASSESSMENT.
[2020-12-31 08:11] VITALS: BP 138/91
--- NOTE | 2020-12-31 08:52 | NUR ---
THIS RN TO ROOM FOR SHIFT ASSESSMENT. SHIFT ASSESSMENT COMPLETED AND VSS, SEE FLOWSHEET AT 0811. DR ROSAS TO ROOM AT 0820 FOR ROUNDING. PT C/O BLURRED VISION AND SEEING SPOTS, AND MUSCLE TWITCHES. LAB ORDERS RECEVIED. PT ALSO C/O ANXIETY AND POSSIBLY RESTARTING HER ZOLOFT PRESCRIPTION. DR ROSAS STATES WILL PLACE ORDER TO RESTART ZOLOFT AND WILL ORDER PRN XANAX FOR ANXIETY AND PANIC ATTACKS. PT ADMIN SCHEDULED MEDS. PT C/O MILD ABD PAIN AT INCISION SITE RATED 2-3/10 AND REQUESTING MOTRIN, ADMIN ORDERED, SEE EMAR FOR DOC. PT UP TO BR AND VOIDS 700ML CLEAR YELLOW URINE. PASSES SMALL NICKEL SIZED CLOT. SCANT LOCHIA. PT TO BACK TO BED. FF, ML, U/2. PT REASSURED. DTR'S 2+ WNL. GENERALIZED EDEMA NOTED TO UPPER EXTREMITIES BILAT. 3+ PITTING EDEMA NOTED TO LE BILAT. POC DISCUSSED WITH PT. UNDERSTANDING VERBALIZED. SRUx2, CL IN REACH. DR ROSAS REQUESTS FOR ANESTHESIA TO ROUND ON PT WELL FOR POST-OP CHECK DUE TO C/O BLURRED VISION/SEEING DOUBLE. WILL NOTIFY ANESTHESIA STAFF.
[2020-12-31 09:18] LABS: ALBUMIN 1.8 g/dL (3.4-5.0); ALKALINE PHOSPHATASE 106 U/L (30-120); ALT (SGPT) 28 U/L (10-68); BILIRUBIN - TOTAL 0.15 mg/dL (0.2-1.3); CALC OSMOLALITY 280 mosm/kg (275-300); CARBON DIOXIDE 23.1 mmol/L (21.0-32.0); CHLORIDE - SERUM 110 mmol/L (98-107); CREATININE - SERUM 0.9 mg/dL (0.6-1.3); GLUCOSE 86 mg/dL (74-106); MAGNESIUM - SERUM 2.9 mg/dL (1.8-2.4); PHOSPHOROUS 3.6 mg/dL (2.5-4.9); POTASSIUM - SERUM 4.2 mmol/L (3.5-5.1); PROTEIN - SERUM 5.2 g/dL (6.4-8.2); SODIUM 142 mmol/L (136-145); UREA NITROGEN 11 mg/dL (7-18); URIC ACID 8.7 mg/dL (2.6-7.2); eGFR NON AFRICAN AMERICAN 77 mL/min (90-120)
[2020-12-31 09:19] LABS: CALCIUM 6.8 mg/dL (8.5-10.1)
--- NOTE | 2020-12-31 10:13 | NUR ---
PT UPDATED ON POC AND ORDER FOR CALCIUM IV DUE TO LOW SERUM LEVEL. PT VERBALIZES UNDERSTANDING, STATES SHE IS FEELING BETTER OVERALL AND THINKS SHE IS JUST EXHAUSTED. WILL FLUSH IV TO VERIFY ACCESS AND AWAITING PHARMACY TO MIX AND DELIVER CALCIUM GLUCONATE.
[2020-12-31 10:15] LABS: BASOPHILS 0.1 % (0-2); EOSINOPHILS 0.2 % (0-7); HEMATOCRIT 32.1 % (36.0-48.0); HEMOGLOBIN 10.3 g/dL (12-16); IMMATURE GRANULOCYTES 0.2 % (0-5); LYMPHOCYTE ABS# 1.79 10x3/uL (1.18-3.74); LYMPHOCYTES 14.4 % (15-50); MCH 29.9 pg (26.0-34.0); MCHC 32.1 g/dL (31.0-37.0); MCV 93.3 fL (80.0-100.0); MEAN PLATELET VOLUME 10.3 fL (7.4-10.4); MONOCYTES 5.4 % (2-11); NEUTROPHIL ABS# 9.89 10x3/uL (1.56-6.13); NEUTROPHILS 79.7 % (40-80); RBC 3.44 10x6/uL (4.00-5.40); WBC 12.4 10x3/uL (4.8-10.8)
--- NOTE | 2020-12-31 10:17 | NUR ---
ANESTHESIA NOTIFIED OF NEED FOR F/U POST-OP CHECK PER DR ROSAS'S ORDER DUE TO PT C/O BLURRED VISION. ALIDA STINSON STATES SOMEONE WILL COME DOWN TO SEE PT SHORTLY.
[2020-12-31 10:19] LABS: PLATELET COUNT 229 10x3/uL (130-400)
--- NOTE | 2020-12-31 10:25 | NUR ---
DR ROSAS PHONED WITH LAB RESULTS. ORDER RECEIVED TO SEE IF LAB CAN ADD IONIZED CALCIUM TO EXISTING LAB DRAW FROM THIS A.M. ORDER RECEIVED TO PROCEED WITH STARTING CALCIUM GLUCONATE IV INFUSION.
--- NOTE | 2020-12-31 10:48 | NUR ---
PT UPDATED ON POC. CALCIUM GLUCONATE INITIATED PER ORDER, SEE EMAR FOR DOC. PT DENIES PAIN OR ANY NEEDS AT THIS TIME. SRUx2, CL IN REACH.
--- NOTE | 2020-12-31 12:01 | NUR ---
THIS RN TO ROOM FOR PT CHECK. PT SITTING UP IN BED, TALKING ON PHONE. PT STATES SHE IS FEELING BETTER. DENIES NEEDS AT THIS TIME. SRUX2, CL IN REACH.
--- NOTE | 2020-12-31 13:40 | NUR ---
DR ROSAS PHONED WITH REPORT THAT ANESTHESIA HAS SEEN PT AND CLEARED FOR ANY CONCERNS OF SPINAL COMPLICATIONS, THAT PT STATES SHE IS FEELING BETTER AND WANTS TO GO HOME. DR ROSAS GIVES ORDER FOR D/C TO HOME WITH INSTRUCTIONS, PT TO F/U IN 1 WEEK FOR BP CHECK. STATES WILL ESCRIBE ZOLOFT TO PT'S PHARMACY.
[2020-12-31 14:00] VITALS: BP 144/73
--- NOTE | 2020-12-31 14:00 | NUR ---
BP OBTAINED AND NOTED TO BE PT'S NORMAL BASELINE BP ON LABETALOL. RIGHT WRIST PIV D/C'D WITHOUT INCIDENT, CATH TIP INTACT. PRESSURE HELD AND BANDAID APPLIED. WILL PROCEED WITH D/C TEACHING.
[2020-12-31] MEDS ORDERED: ZOLOFT25 MG PO (14:51)
[2020-12-31] MEDS ORDERED: IBUPROFEN800 MG PO (14:52)
[2020-12-31] MEDS ORDERED: PERCOCET 10-321 EAC1 PO (14:52)
[2020-12-31] MEDS ORDERED: NORMODYNE / TR200 MG PO (14:53)
[2020-12-31] MEDS ORDERED: FUROSEMIDE20 MG PO (14:53)
--- NOTE | 2020-12-31 15:08 | NUR ---
PT GIVEN D/C INSTRUCTIONS WELL PRESCRIPTIONS PROVIDED BY DR ROSAS FOR D/C TO HOME. REINFORCED TO PT TO [employer] PRESCRIPTION FOR ZOLOFT ESCRIBED BY DR ROSAS. PT VERBALIZES UNDERSTANDING AND DENIES QUESTIONS. SIGNS CHART COPIES, PT COPIES GIVEN.
--- NOTE | 2020-12-31 15:15 | NUR ---
PT TAKEN OFF UNIT VIA W/C FOR D/C TO HOME. SIG OTHER TO DRIVE PT HOME.
== END 2020-12-31 15:15 | disposition home or self-care (01) | DRG 788 ==
LOC: D.LDO 08:45 → D.LD 14:13
PROVIDERS: ADMIT Obstetrics & Gynecology; ATTEND Obstetrics & Gynecology
PROC: 10D00Z1 Extraction of Products of Conception, Low, Open Approach (ICD-10-PCS; principal; 2020-12-28 15:15)
DX: O14.94 Unspecified pre-eclampsia, complicating childbirth (principal); Z3A.34 34 weeks gestation of pregnancy; Z37.0 Single live birth; O24.429 Gestational diabetes mellitus in childbirth, unspecified control; O34.13 Maternal care for benign tumor of corpus uteri, third trimester; D25.9 Leiomyoma of uterus, unspecified; O77.0 Labor and delivery complicated by meconium in amniotic fluid; O69.81X0 Labor and delivery complicated by cord around neck, without compression, not applicable or unspecified; O99.344 Other mental disorders complicating childbirth; F41.9 Anxiety disorder, unspecified